=== PATIENT | female | born 1995 | race Two or more races ===

== ENCOUNTER 2023-09-12 16:48 | Emergency (ER) | payer SELFPAY ==
[~2023-09-12] VITALS: Ht 162.6 cm; Wt 103.1 kg
[2023-09-12 18:27] VITALS: BP 145/94; PULSE 120; RESP 16; TEMP 98; O2SAT 96
== END 2023-09-12 18:32 | disposition home or self-care (01) ==
LOC: ER 16:48
DX: S50.12XA Contusion of left forearm, initial encounter (principal); J45.909 Unspecified asthma, uncomplicated; F12.90 Cannabis use, unspecified, uncomplicated; V89.2XXA Person injured in unspecified motor-vehicle accident, traffic, initial encounter; Y93.89 Activity, other specified; Y92.89 Other specified places as the place of occurrence of the external cause; Y99.8 Other external cause status